=== PATIENT | male | born 1925 | race Two or more races ===

== ENCOUNTER 2016-02-27 06:11 | Observation (INO) | payer MEDICARE, OTHER ==
[2016-02-26 11:20] VITALS: BMI 36.6
--- NOTE | 2016-02-26 17:24 | PREOPHP ---
DATE OF ADMISSION: 02/27/2016 HISTORY OF PRESENT ILLNESS: This 89-year-old patient is admitted for elective enucleation of the ri t eye. The patient has had a history of having had complicated cataract surgery 1 year prior with inability to place an intraocular lens due to choroidal hemorrhage and detachment. The patient's e ye subsequently became painful and phthisical with a total loss of vision in that eye. Palliative t reatment has been attempted including the use of topical steroid drops and retrobulbar absolute alco hol injection. The patient continues to experience pain in that eye. Approximately 2-1/2 months ag o the patient was admitted for enucleation; however, due to a bradycardia surgery was canceled and s ubsequently the patient had a cardiac pacemaker placed. REVIEW OF SYSTEMS: The patient's systemic history is positive for prior history of bradycardia, hyp ertension, diabetes mellitus, aortic stenosis. CURRENT MEDICATIONS: Includes: 1. Iron sulfate. 2. Lisinopril. 3. Pepcid. 4. Azithromycin. 5. Ceftriaxone. 6. Albuterol. 7. Atrovent. 8. Zofran. ALLERGIES: THERE ARE NO KNOWN ALLERGIES. PHYSICAL EXAMINATION: The patient has a visual acuity of no light perception in the right eye and 2 0/200 in the left eye. Slit lamp examination of the right eye reveals conjunctival hyperemia and co rneal folds. The left eye shows evidence of a cataract. DIAGNOSIS: Phthisis bulbi right eye. PLAN: Patient to undergo enucleation of the right eye done under minimal sedation and monitoring. The patient has opted to proceed with this procedure because of the intractable pain that he has exp erienced from the right eye. Dictated By: BRINDA THURSTON/THOMAS Conf#: [id number] DID#: [id number]
[2016-02-27] VITALS (32 sets, daily range): BP systolic 102–147; BP diastolic 43–69; PULSE 60–61; RESP 15–33; Ht 188 cm; Wt 87.0 kg
[~2016-02-27] VITALS: Ht 188 cm; Wt 87.0 kg
[~2016-02-27 06:11] MED LIST: CEPH500C PO; CIPROFLOXACIN 0.3% 2.5 ML OPH OPER SCH; DICL50TA11 PO; FER325 PO; LISI10TA2 PO; diltiazem PO
[2016-02-27] MEDS ORDERED: LIDOCAINE 4% (MPF) 5 ML INJ ONE ×2 (07:14)
[2016-02-27] MEDS ORDERED: PROPOFOL 20 ML ONE (07:14)
[2016-02-27] MEDS ORDERED: FURO40TA4 PO (07:19)
[2016-02-27] MEDS ORDERED: ASPI-664 PO (07:19)
[2016-02-27] MEDS ORDERED: METF-382 PO (07:19)
[2016-02-27] MEDS ORDERED: ATOR40TA68 PO (07:19)
[2016-02-27] MEDS ORDERED: SPIR25TA76 PO (07:19)
[2016-02-27] MEDS ORDERED: CARV3.1260 PO (07:19)
[2016-02-27] MEDS ORDERED: BUPIVACAINE 0.5% (SDV) 30 ML INJ ONE (07:29)
[2016-02-27] MEDS ORDERED: LIDOCAINE 2%/EPI 30 ML INJ ONE (07:30)
--- NOTE | 2016-02-27 07:31 | HPN ---
Date/Time of Note Date/Time of Note DATE: 02/27/16 TIME: 07:30 Interval H&P Admission Note Pt. seen H&P reviewed: No system changes BRINDA GUTIERREZ MD Feb 27, 2016 07:31
[2016-02-27] MEDS ORDERED: FENTAnyl 50 MCG/ML VIAL ONE (08:07)
[2016-02-27] MEDS ORDERED: THROMBIN 5000 UNIT VIAL ONE (08:11)
[2016-02-27] MEDS ORDERED: MEPERIDINE 25 MG INJ IV PRN (08:30)
[2016-02-27] MEDS ORDERED: FENTAnyl 50 MCG/ML VIAL IV PRN ×2 (08:30)
[2016-02-27] MEDS ORDERED: hydrALAzine 20 MG INJ IV PRN (08:30)
[2016-02-27] MEDS ORDERED: HYDROmorphONE (0.2 MG/ML) 10ML SYG IV PRN ×3 (08:30)
[2016-02-27] MEDS ORDERED: ONDANSETRON 4 MG INJ IV PRN (08:30)
[2016-02-27] MEDS ORDERED: LABETALOL HCL 20MG INJ IV PRN (08:30)
--- NOTE | 2016-02-27 10:42 | OPR ---
DATE OF OPERATION: 02/27/2016 PREOPERATIVE DIAGNOSIS: Phthisis bulbi right eye; painful eye. POSTOPERATIVE DIAGNOSIS: Phthisis bulbi right eye; painful eye. OPERATION PERFORMED: Enucleation of right eye. SURGEON: Brinda Rich MD ANESTHESIOLOGIST: ROB MADDEN MD DESCRIPTION OF PROCEDURE: Patient was brought to the operating room on an eye gurney, positioned ap propriately on the gurney and then connected to electrocardiogram monitor and oxygen pulse oximeter. The patient received some intravenous sedation and then local anesthesia using lidocaine 4% given in lid block and retrobulbar injection. The patient was then prepped and draped in the usual steril e manner. A speculum was inserted between the lids of the right eye and using the operating microsc ope, a conjunctival peritomy was performed for 360 degrees exposing bare sclera around the entire co rnea. Following this, using a muscle hook, the rectus muscles were isolated and then were disinsert ed from the globe. This was done to the superior, inferior, lateral and medial recti muscles. Fol lowing this, a similar procedure was performed to disinsert the superior oblique and the inferior ob lique muscles. After this had been completed, two 5-0 Vicryl sutures were placed through sclerae at the superior and inferior corneal limbus and then used as traction to lift the globe out of the orb ital socket. After this had been partially done, a curved hemostat was used to grasp the optic ner ve. The hemostat was closed in order to obtain some degree of hemostasis and then after it was remov ed, large curved scissors were used to transect the optic nerve and surrounding tissues in the poste rior portion of the orbit. The globe was then submitted for gross pathological evaluation. Hemosta sis was obtained through means of using gauze pads with pressure as well as using thrombin-soaked pl edgets and over a course of approximately 10 minutes, the bleeding subsided. No vessels were identi fied for cauterization. The wound was then closed by using the 5-0 Vicryl sutures in interrupted fa shion to close conjunctiva and Tenon's tissue until the contents of the orbit were covered with conj unctiva. The speculum was then removed and the orbit was packed with half-inch gauze previously imp regnated in Vigamox ophthalmic solution. Following this, a pressure patch was applied to the right eye and then the patient left the operating room in satisfactory condition. Dictated By: BRINDA THURSTON/THOMAS Conf#: [id number] DID#: [id number]
[2016-02-27] MEDS ORDERED: DOCUSATE SODIUM 100 MG CAP PO PRN (17:00)
[2016-02-27] MEDS ORDERED: ACETAMINOPHEN 650 MG SUPP PR PRN (17:00)
[2016-02-27] MEDS ORDERED: ACETAMINOPHEN 325 MG TAB PO PRN (17:00)
[2016-02-27] MEDS ORDERED: NACL 0.9% 3 ML SYG IV SCH (17:00)
[2016-02-27] MEDS ORDERED: ONDANSETRON 4 MG TAB PO PRN (17:00)
[2016-02-27] MEDS ORDERED: HYDROCODONE/APAP (5/325) TAB PO PRN (17:00)
[2016-02-27] MEDS: metFORMIN 500 MG TAB PO SCH ×2 (18:00→21:15)
--- NOTE | 2016-02-27 18:08 | HP ---
DATE OF ADMISSION: 02/27/2016 ELECTRICAL ELECTRONICS TECHNICIAN: Dr. Mustapha Rich MD, buffer inflated pad. 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 Mustapha Rich as an outpatient for enucleation his right e ye. On 02/27/2016, the patient was admitted for elective enucleation of his right eye. The patient has had a history of having right complicated cataract surgery [address] an intr aocular lens due to choroidal hemorrhage and detachment. The patient's eye subsequently became pain ful and phthisical with a total loss of vision in the right eye. Palliative treatment has been atte mpted including the use of topical steroid drops and retrobulbar absolute alcohol injection, althoug h the patient continued to experience pain in that eye. Approximately 2-1/2 months ago, the patient was admitted for enucleation; however, due to bradycardia, surgery was canceled. Subsequently, the patient had a cardiac pacemaker placed. Therefore, after further evaluation by the buffer inflated pad , the patient was [facility] for [facility] enucleation of the right eye. After signing consent, the patient was taken to OR and had an enucleation of the right eye. The pat ient tolerated the procedure well, although unfortunately patient had continuous bleeding, although minimally. Therefore at this time, the patient will be admitted for observation. PAST MEDICAL AND SURGICAL HISTORY: As above per HPI. MEDICATIONS: 1. Aspirin 81 mg. 2. Lipitor 40 mg. 3. Coreg 3.125 mg. 4. Keflex 500 mg. 5. Diclofenac 50 mg. 6. Ferrous sulfate 325 mg. 7. Lasix 40 mg. 8. Lisinopril 10 mg. 9. Metformin 250 mg. 10. Aldactone 25 mg. 11. Diltiazem. ALLERGIES: NO KNOWN DRUG ALLERGIES. FAMILY HISTORY: Noncontributory secondary to advanced age. SOCIAL HISTORY: Negative x3 for smoking, alcohol, illicit drugs. REVIEW OF SYSTEMS: As above per HPI, otherwise 12-point review of systems was found to be negative for fever, chills, weight gain, weight loss, anorexia. No chest palpitations, edema, orthopnea. Th e patient does have change in visual acuity, has been getting worse in the right eye. No neck pain, no restricted range of motion. No abdominal pain, no nausea, vomiting, diarrhea. No dysuria, arti turia, urgency, incontinence or any other discomfort. PHYSICAL EXAMINATION: VITAL SIGNS: Temperature 98.5, pulse 60, respiration 18, blood pressure 127/50, oxygen 97% in room air. GENERAL APPEARANCE: The patient is lying in bed comfortably without any distress. He is awake, amanda rt, oriented. He is able to answer my questions properly. HEENT: Right eye is dressed postoperatively, no sign of bleeding, although it is packed. The left eye, extraocular movement is normal. NECK: Supple. Trachea is midline. No lymphadenopathy. RESPIRATORY: Effort is normal. Clear to auscultate bilaterally. CARDIOVASCULAR: Normal S1, S2. Regular rhythm and rate. No murmur, no bruits, no edema. Peripher al pulses, radial pulses palpable. Cap refill is normal. CHEST: Normal expansion of thorax during inspiration. GASTROINTESTINAL: Abdomen is soft, nontender, not distended. Bowel sounds present. No guarding, n o rebound. GENITOURINARY: Deferred. MUSCULOSKELETAL: Upper and lower extremities within normal limits. Full range of motion, strength 5/5 both upper and lower extremities. NEUROLOGIC: Cranial nerves II through XII are grossly intact. PSYCHIATRIC: Normal judgment and insight. Alert and oriented x3. Mood and affect is normal. LABORATORY WORK AND IMAGING: Pending. ASSESSMENT AND PLAN: 1. Phthisis bulbi of the right eye, status post enucleation of the right eye by Dr. Mustapha wray. Continue post-surgical care. 2. Essential hypertension. Continue medical management on Coreg and lisinopril. 3. Anemia. Continue ferrous sulfate. 4. Diabetes mellitus. Continue Metformin. 5. Dyslipidemia. Continue atorvastatin. 6. For deep venous thrombosis prophylaxis, placement of SCD. At this time, will hold aspirin and r kaylene from using any pharmacologic DVT prophylaxis secondary to bleeding from right eye. We will continue to monitor patient closely. Further recommendations, management and treatment as p er clinical course. Total amount of time was spent for evaluation of patient and admission workup 40 minutes. Dictated By: JOSE DAVIES/NTS Conf#: [id number] DID#: [id number]
[2016-02-27] MEDS ORDERED: ATORVASTATIN 40 MG TAB PO SCH (21:00)
[2016-02-27] MEDS: CEPHALEXIN 500 MG CAP PO SCH (21:15)
[2016-02-28 00:45] VITALS: BP 142/61; RESP 18
[2016-02-28 07:15] LABS: BASOPHILS % 0.6 % (0.0-2.0); EOSINOPHILS # 0.1 10^3/ul (0.0-0.5); EOSINOPHILS % 2.9 % (0.0-7.0); HEMATOCRIT 32.5 % (42.0-52.0); HEMOGLOBIN 10.9 g/dl (14.0-18.0); LYMPHOCYTES # 1.2 10^3/ul (0.8-2.9); MEAN CORPUSCULAR HEMOGLOBIN 29.3 pg (29.0-33.0); MEAN CORPUSCULAR HGB CONC 33.7 g/dl (32.0-37.0); MEAN PLATELET VOLUME 8.1 fl (7.4-10.4); MONOCYTE # 0.5 10^3/ul (0.3-0.9); MONOCYTES % 9.3 % (0.0-11.0); NEUTROPHIL # 3.2 10^3/ul (1.6-7.5); NEUTROPHILS % 63.2 % (39.0-77.0); PLATELET COUNT 111 10^3/UL (140-440); RED BLOOD COUNT 3.73 10^6/ul (4.70-6.10); RED CELL DISTRIBUTION WIDTH 16.2 % (11.5-14.5)
[2016-02-28 07:22] LABS: CONDITION 1; LH ANALYZER COMMENTS 1
[2016-02-28 07:36] LABS: POTASSIUM 4.1 mmol/L (3.5-5.1)
[2016-02-28 07:39] LABS: CREATININE 1.04 mg/dl (0.61-1.24)
[2016-02-28 07:40] LABS: CALCIUM 9.1 mg/dl (8.4-10.2); CHOL/HDL RATIO 2.9 RATIO
[2016-02-28 08:14] VITALS: BP 135/66; RESP 18
[2016-02-28] MEDS: metFORMIN 500 MG TAB PO SCH (08:26)
[2016-02-28] MEDS: CEPHALEXIN 500 MG CAP PO SCH ×2 (08:31→12:39)
[2016-02-28] MEDS ORDERED: SPIRONOLACTONE 25 MG TAB PO SCH (09:00)
[2016-02-28] MEDS ORDERED: FERROUS SULFATE (EC) 325 MG TAB PO SCH (09:00)
[2016-02-28] MEDS ORDERED: FUROSEMIDE 40 MG TAB PO SCH (09:00)
[2016-02-28] MEDS ORDERED: LISINOPRIL 10 MG TAB PO SCH (09:00)
--- NOTE | 2016-02-28 10:27 | PDOCDIS ---
Discharge Instructions CONDITION Patient Condition: Good HOME CARE INSTRUCTIONS: Special Diet: Cardiac ACTIVITY: Activity Restrictions: Slowly Increase Activity Rest between Activity Avoid heavy lifting Do not Drive Do not operate Machinery Do not operate Power Tool Avoid Heavy Housework Bathing Restrictions: Shower FOLLOW UP/APPOINTMENTS Appointments Follow-up with farm service adviser as per his recommendations JOSE GIRALDO MD Feb 28, 2016 10:27
--- NOTE | 2016-02-28 19:10 | DS ---
DATE OF ADMISSION: 02/27/2016 DATE OF DISCHARGE: 02/28/2016 CLOUD ARCHITECT: Mustapha Rich MD PROCEDURE: Enucleation of the right eye. DISCHARGE DIAGNOSES: 1. Phthisis bulbi of right eye, status post enucleation of the right eye. Follow up with ophthalmo logist tomorrow. 2. Essential hypertension, well controlled on medical management. 3. Anemia. Continue ferrous sulfate. 4. Diabetes mellitus. Continue metformin. 5. Dyslipidemia. Continue atorvastatin. 6. Critical aortic stenosis. Follow with Cardiology as outpatient. MEDICATIONS: At this time, we will hold aspirin until patient is followed up by mucker cofferdam janene orrow. We will continue to following medications: 1. Lipitor 40 mg. 2. Coreg 3.125 mg. 3. Keflex 500 mg. 4. Ferrous sulfate 325 mg. 5. Lasix 40 mg. 6. Lisinopril 10 mg. 7. Metformin 250 mg. 8. Aldactone 25 mg. 9. Diltiazem. ALLERGIES: NO KNOWN DRUG ALLERGIES. DISPOSITION: Home. DIET: Cardiac diet. ACTIVITY: As tolerated. Light activity for the next 3 [address] No heavy lifting . HOSPITAL COURSE: This is a very pleasant 89-year-old gentleman with a past medical history of sinus bradycardia, status post single-chamber pacemaker placement on 12/11/2015; essential hypertension; critical aortic stenosis; chronic renal insufficiency; phthisis bulbi of the right eye; pulmonary hy pertension; coronary artery disease who has been followed up by mucker cofferdam, Dr. Mustapha wray, as outpatient for his right eye pain, and yesterday on 02/27/2016, patient was admitted for elect mrina enucleation of the right eye. After signing consent, the patient was taken to OR, and surgery w as uneventful, although postoperatively patient was found to have continuous bleeding from his right eye. Therefore, patient was admitted to [facility] for observation. His bleedin g has improved significantly. At this time, patient denies having any chest pain, shortness of gildardo th, nausea, vomiting, diarrhea. No headache, dizziness, lightheadedness. No dysuria, hematuria, ur gency, incontinence or any other discomfort. For his blood pressure, he was continued on Coreg and lisinopril. For his anemia, he was continued on ferrous sulfate. For diabetes mellitus, continued metformin. For dyslipidemia, patient was continued on statin. For DVT prophylaxis, he was placed o n SCDs. There was no pharmacologic DVT prophylaxis secondary to bleeding from the right eye. This morning, patient was seen and evaluated by mucker cofferdam, Dr. Mustapha Rich, and has been clear ed from surgical standpoint to be discharged home. His vital signs have been stable with temperatur e 97.6, pulse 60, respirations 18, blood pressure 135/66, oxygen saturation 98%. LABORATORY DATA: WBC 5.0, hemoglobin 10.9, hematocrit 32.5, platelets 111, MCV 87. Sodium 138, pot assium 4.1, chloride 102, bicarbonate 25, BUN 29, creatinine 1.04, glucose 110. Triglycerides 62, t otal cholesterol 86, LDL 45, HDL 29. 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 At this time we will continue to hold aspirin until the patient is seen and evaluated by mucker cofferdam, Dr. Rich, for restarting the aspirin. Total amount of time spent for evaluation of patient and discharge workup was 40 minutes. Dictated By: JOSE DAVIES/NTS Conf#: [id number] DID#: [id number]
== END 2016-02-28 13:40 | disposition home or self-care (01) ==
LOC: SDS 06:11 → MS1 15:48
PROVIDERS: ADMIT Ophthalmology; ATTEND Ophthalmology
DX: H44.521 Atrophy of globe, right eye (principal); E78.5 Hyperlipidemia, unspecified; I10 Essential (primary) hypertension; D64.9 Anemia, unspecified; E11.9 Type 2 diabetes mellitus without complications; Z79.84 Long term (current) use of oral hypoglycemic drugs; I35.0 Nonrheumatic aortic (valve) stenosis; Z79.82 Long term (current) use of aspirin
CPT/HCPCS: 65101; 80048; 80061; 82962; 83735; 85025; 88300; G0378; J3010